=== PATIENT | female | born 1945 | race Caucasian/White ===

== ENCOUNTER → 2017-06-24 | Outpatient (CLI) | payer MEDICARE ==
[~2017-06-24] MED LIST: APIX5TAB PO; ATEN-103 PO; ATEN25TA PO; BENZ-17 PO; CAL1TABL7 PO; CEFD300C37 PO; CHOL500015 PO; DOXY100T PO; ESTR0.6246 PO; FAMO40TA4 PO; FENTANYL PF 100 MCG/2ML ONE; FLONASE INH; FLUT9.9S NAS; GADOBUTROL 10 MMOL/10 ML PFS ONE; GUAI5SYR PO; HYDR25TA6 PO; IPRA3AMP NPPB; IPRA4AER INH; KRIL1CAP21 PO; LEVO137T2 PO; LEVO750T26 PO; LOSA100T6 PO; METH4TAB PO; MIDAZOLAM 1 MG/ML, 5ML ONE; MIRT15TA PO; MIRT15TA4 PO; MONT10TA6 PO; MOVE FREE ULTR1 EACH PO; MULT-717 PO; PANT40TA5 PO; POTA10TA11 PO; PRED10TA PO; PRED5TAB PO; RIOC1TAB PO; RIVA20TA PO; TORS20TA PO; VALS1TAB19 PO; VALS1TAB7 PO; VENL75CA PO; ZOLP-413 PO; ZOLP5TAB6 PO; ZOLP6.253 PO; [UNRECOGNIZED DRUG - CODE] PO; potassium PO
== END | disposition home or self-care (01) ==
LOC: RAD 09:42
PROVIDERS: ATTEND Neurological Surgery
DX: G31.9 Degenerative disease of nervous system, unspecified (principal); I67.82 Cerebral ischemia; R90.82 White matter disease, unspecified
CPT/HCPCS: 70553; 99156; 99157; A9585; J2250; J3010

== ENCOUNTER → 2018-03-31 | Outpatient (CLI) | payer MEDICARE, OTHER ==
[~2018-03-31] MED LIST changes: -FENTANYL PF 100 MCG/2ML ONE; -GADOBUTROL 10 MMOL/10 ML PFS ONE; -IPRA3AMP NPPB; +IPRA3AMP30 NPPB; -MIDAZOLAM 1 MG/ML, 5ML ONE
== END | disposition home or self-care (01) ==
LOC: CFH 09:26
PROVIDERS: ATTEND Family Medicine
DX: Z12.31 Encounter for screening mammogram for malignant neoplasm of breast (principal); Z13.820 Encounter for screening for osteoporosis; M85.88 Other specified disorders of bone density and structure, other site; N95.9 Unspecified menopausal and perimenopausal disorder; E03.9 Hypothyroidism, unspecified
CPT/HCPCS: 77063; 77080; 77067

== ENCOUNTER → 2019-01-27 | Outpatient (CLI) | payer MEDICARE, OTHER ==
[~2019-01-27] MED LIST changes: +LOSA100T14 PO; -LOSA100T6 PO
== END | disposition home or self-care (01) ==
LOC: CARD 12:18
PROVIDERS: ATTEND Internal Medicine Cardiovascular Disease
DX: I26.09 Other pulmonary embolism with acute cor pulmonale (principal); R06.02 Shortness of breath
CPT/HCPCS: 94060; 94726; 94729

== ENCOUNTER 2020-06-16 10:02 | Outpatient (CLI) | payer MEDICARE, OTHER ==
[~2020-06-16 10:02] MED LIST changes: +MIRT-34 PO; +MIRT-37 PO; -MIRT15TA PO; -MIRT15TA4 PO; -PANT40TA5 PO; +PANT40TA6 PO; -ZOLP6.253 PO; +ZOLP6.255 PO
== END 2020-06-16 23:59 | disposition home or self-care (01) ==
LOC: CFH 10:02
PROVIDERS: ATTEND Family Medicine
DX: Z12.39 Encounter for other screening for malignant neoplasm of breast (principal); R92.2 Inconclusive mammogram
CPT/HCPCS: 76641; 77063; 77067